=== PATIENT | male | born 1935 | race Caucasian/White ===

== ENCOUNTER 2019-07-14 07:45 | Emergency (ER) | payer MEDICARE, MEDICAID ==
[~2019-07-14] VITALS: Ht 170.2 cm; Wt 84.1 kg
--- NOTE | 2019-07-14 08:03 | NUR ---
VERY PLEASANT MAN WHO STATES THAT HE ARRIVED HERE IN [place] [facility] FROM [place] YESTERDAY 07/13. STATES THAT HE HAD REMOVED ALL OF HIS MONEY OFF OF HIS DEBIT CARD SO THAT HE WOULD HAVE [facility] BUT FOUND THAT THE [facility] WOULD NOT ACCEPT [facility] FOR A ROOM. PT STATES THAT HE SLEPT OUTSIDE LAST NIGHT. PT USES WHEELCHAIR BUT IS ABLE TO STAND AND TRANSFER INDEPENDENTLY. PT WITH HX OF AFIB/FLUTTER AND HAS AICD/PACER. PT SEEMS VERY KNOWLEDGABLE REGARDING HIS MEDICATIONS AND STATES THAT HE IS USUALLY VERY COMPLIANT WITH THEM BUT STATES THAT THEY WERE STOLLEN LAST WEEK SO HE HAS BEEN W/O ANY MEDICATION FOR 1 WEEK. TAKE METOPROLOL AND AMIODARONE. PT C/O INCREASED KELSEY LOWER EXT EDEMA AND INCREASING DIFFICULTY WITH AMBULATING. EKG COMPLETED IN TRIAGE = PACED RHYTHM. PT TO ROOM VIA HIS WHEELCHAIR FROM TRIAGE.
--- NOTE | 2019-07-14 08:18 | NUR ---
HEBER BRADLEY AT BEDSIDE FOR EVALUATION
[2019-07-14 08:27] VITALS: BP 180/89
== END 2019-07-14 11:40 | disposition home or self-care (01) ==
LOC: ED 11:32
DX: I87.2 Venous insufficiency (chronic) (peripheral) (principal); R60.9 Edema, unspecified; I50.9 Heart failure, unspecified
CPT/HCPCS: 93005; 99283

== ENCOUNTER 2019-07-15 04:16 | Emergency (ER) | payer MEDICARE, MEDICAID ==
[~2019-07-15] VITALS: Ht 177.8 cm; Wt 80.0 kg
[2019-07-15 04:25] VITALS: BP 164/93
--- NOTE | 2019-07-15 04:25 | NUR ---
Pt BIBA c/o weakness and sob. Placed vitals signs monitors, pt requesting security to safekeep his valuables/money. Security at bedside.
--- NOTE | 2019-07-15 05:17 | NUR ---
[facility] at bedside.
--- NOTE | 2019-07-15 05:25 | NUR ---
Pt refusing lab draw, ERP aware.
--- NOTE | 2019-07-15 06:44 | NUR ---
Pt sleeping in [facility], no distress noted, call light within reach.
== END 2019-07-15 07:01 | disposition home or self-care (01) ==
LOC: ED 06:55
DX: I83.12 Varicose veins of left lower extremity with inflammation (principal); I83.11 Varicose veins of right lower extremity with inflammation; I50.9 Heart failure, unspecified; R05 Cough
CPT/HCPCS: 71046; 93005; 93970; 99284